=== PATIENT | female | born 2000 | race Caucasian/White ===

== ENCOUNTER 2023-11-06 16:16 | Emergency (ER) | payer OTHER ==
[2023-11-06 16:32] VITALS: O2SAT 100
--- NOTE | 2023-11-06 17:41 | ED Physician Documentation ---
History of Present Illness - Stated complaint Stated Complaint: PANIC ATTACK - Chief complaint Chief Complaint: MHE - History obtained from History obtained from: Patient - Additonal information Additional information: The patient comes to the emergency department chief complaint of Panic attack that started today. She states that she was just getting ready for her PT for the [employer] and suddenly began to feel anxious. She states her heart started racing control she could not catch her breath. She states this has happened before and it is consistent with her panic attacks. The patient states she did not really feel stressed out and has not had anything weighing on her mind lately. She is not really sure why she started to feel anxious. PD PAST MEDICAL HISTORY - Past Medical History Past Medical History: No - Past Surgical History Past Surgical History: No - Present Medications Home Medications: Ambulatory Orders Medication Instructions Recorded Confirmed Alprazolam [Xanax] 0.25 mg PO Q6H PRN #10 tablet 11/06/23 - Allergies Allergies/Adverse Reactions: Allergies Allergy/AdvReac Type Severity Reaction Status Date / Time No Known Drug Allergies Allergy Verified 11/06/23 16:29 - Social History Does the pt smoke?: No Smoking Status: Never smoker Does the pt drink ETOH?: No Does the pt have substance abuse?: No - Immunizations Immunizations are current?: Yes - POLST Patient has POLST: No PD ED PE NORMAL - Vitals Vital signs reviewed: Yes - General General: No acute distress, Well developed/nourished, Other (Alert, appears slightly anxious but not in distress.) - HEENT HEENT: Atraumatic, EOMI, Moist mucous membranes - Neck Neck: Supple, no meningeal sign - Cardiac Cardiac: RRR, No murmur - Respiratory Respiratory: No respiratory distress, Clear bilaterally - Abdomen Abdomen: Soft, Non tender, Non distended - Derm Derm: Normal color, Warm and dry, No rash - Extremities Extremities: No deformity, No edema - Neuro Neuro: Alert and oriented X 3 - Psych Psych: Normal mood, Normal affect Results - Vitals Vitals: Vital Signs - 24 hr 11/06/23 11/06/23 16:25 16:49 Temperature 36.4 C L Heart Rate 75 Respiratory 20 15 Rate Blood Pressure 149/62 H O2 Saturation 100 Oxygen O2 Source Room air PD Medical Decision Making - ED course Complexity details: considered differential, d/w patient ED course: The patient was treated with a dose of Xanax here and a prescription for small amount of the same was electronically transmitted to the [facility] pharmacy in [place]. I have advised the patient to follow[place]. We have discussed the usual indications for return. Departure - Departure Disposition: 01 Home, Self Care Clinical Impression: Anxiety attack Condition: Stable Instructions: ED Panic Attack Prescriptions: Alprazolam [Xanax] 0.25 mg PO Q6H PRN #10 tablet PRN Reason: Anxiety Comments: You have been treated with a dose of antianxiety medication here in the emergency department. A prescription for the same has been electronically transmitted to the [facility] pharmacy in [place] for you. Please follow-up with your primary care physician as soon as possible to determine a long-term plan for management of your anxiety.
[2023-11-06] MEDS: ALPRAZolam 0.25 MG TABLET PO STA (17:43)
[2023-11-06 17:54] VITALS: BP 131/76
== END 2023-11-06 17:48 | disposition home or self-care (01) ==
LOC: ED 16:16
DX: F41.9 Anxiety disorder, unspecified (principal)
CPT/HCPCS: 99283; A9270